=== PATIENT | female | born 1995 | race Caucasian/White ===

== ENCOUNTER 2016-10-22 17:24 | Emergency (ER) | payer SELFPAY ==
--- NOTE | 2016-10-22 19:27 | Emergency Department Report ---
Chief Complaint: Abdominal Pain Stated Complaint: ABD PAIN Time Seen by Provider: 10/22/16 19:22 - HPI History of Present Illness: [employer] service Patient reports that she has mid abdominal pain that is radiating into her back since Tuesday .She reports nausea and vomiting from Tuesday to Tuesday. Reports chills but did not take her temperature and she said she feels feverish. Denies any diarrhea. Pain is 8 out of 10. Patient says she has a at history of acid reflux and the pain is a burning pain pointing to her epigastric area. No previous surgeries in the past. Denies any blood in urine , burning with urination. - ROS Review of Systems: All systems are negative unless stated in HPI above. - Exam Vital Signs: Vital Signs 10/22/16 18:56 Temperature 98.3 F Pulse Rate 93 H Respiratory 18 Rate Blood Pressure 111/73 O2 Sat by Pulse 100 Oximetry Physical Exam: General: This is a 21-year-old female well-nourished well-developed in no acute distress. GI: Soft, palpate to mid to upper right quadrant. No guarding or rebound tenderness. Normal bowel sounds and no CVA tenderness. CV: S1, S2. Regular rate and rhythm. MSE screening note: Focused history and physical exam performed. Due to findings the following was ordered:see mdm ED Medical Decision Making - Medical Decision Making Medical decision making: Patient seen by provider in triage area. Appropriate protocol activated and patient to main ED to be seen by physician. ED Disposition for MSE Condition: Stable Instructions: Abdominal Pain (ED)
[2016-10-22 20:46] LABS: Basophils % (Auto) 0.5 % (0.0-1.8); Eosinophils % (Auto) 0.8 % (0.0-4.3); Hematocrit 37.1 % (30.3-42.9); Hemoglobin 12.5 gm/dl (10.1-14.3); Mean Corpuscular HGB Conc 34 % (30-34); Mean Corpuscular Hemoglobin 31 pg (28-32); Mean Corpuscular Volume 91 fl (79-97); Platelet Count 328 K/mm3 (140-440); Red Blood Count 4.09 M/mm3 (3.65-5.03); Red Cell Distribution Width 14.5 % (13.2-15.2); White Blood Count 10.7 K/mm3 (4.5-11.0)
[2016-10-22 20:53] LABS: Bilirubin,Urine NEG (Negative)
[2016-10-22 20:54] LABS: Blood,Urine SM (Negative); Ketones,Urine NEG (Negative); Leukocyte Esterase,Urine NEG (Negative); Mucus,Urine 1+ /HPF; Nitrite,Urine NEG (Negative); Protein,Urine <15 mg/dL mg/dL (Negative); Urobilinogen,Urine < 2.0 mg/dL (<2.0)
[2016-10-22 21:14] LABS: Alanine Aminotransferase 33 units/L (7-56); Albumin 4.3 g/dL (3.9-5); Albumin/Globulin Ratio 0.9 %; Alkaline Phosphatase 82 units/L (35-129); Amylase 50 units/L (27-131); Bilirubin,Total 0.6 mg/dL (0.1-1.2); Blood Urea Nitrogen 6 mg/dL (7-17); Calcium 9.4 mg/dL (8.4-10.2); Carbon Dioxide 25 mmol/L (22-30); Chloride 97.8 mmol/L (98-107); Glucose 105 mg/dL (65-100); Lipase 16 units/L (13-60); Potassium 4.8 mmol/L (3.6-5.0); Sodium 137 mmol/L (137-145); Total Protein 8.9 g/dL (6.3-8.2)
[2016-10-22 21:16] LABS: Anion Gap 19 mmol/L; Bilirubin,Direct < 0.2 mg/dL (0-0.2); Bilirubin,Indirect 0.4 mg/dL
[2016-10-23] MEDS ORDERED: TYLENOL PO ONE (07:27)
--- NOTE | 2016-10-23 07:52 | Emergency Department Report ---
ED General Adult HPI - General Chief complaint: Abdominal Pain Stated complaint: ABD PAIN Time Seen by Provider: 10/22/16 19:22 Source: patient, family Mode of arrival: Ambulatory Limitations: Language Barrier - History of Present Illness Initial comments: The patient complained of epigastric pain and right flank pain. Sometimes it radiates up towards the shoulder. These episodes are clearly postprandial. Over the last week specifically between Tuesday and Tuesday the patient had a few episodes of vomiting. She denied any urinary symptoms. She did not measure her temperature at home nor have any shaking chills. She has no prior history of gallstones. She states that she is not currently nauseated. She denies any shortness of breath or cough. -: month(s) Location: right (flank) Severity scale (0 -10): 6 Associated Symptoms: denies other symptoms (except), nausea/vomiting - Related Data Previous Rx's Medication Instructions Recorded Last Taken Type Cephalexin [Keflex] 500 mg PO QID #20 capsule 10/23/16 Unknown Rx HYDROcodone/APAP 5-325 [[place] 1 each PO Q6HR PRN #10 tablet 10/23/16 Unknown Rx 5/325] Ondansetron [Zofran Odt] 4 mg PO Q6H PRN #7 tab.rapdis 10/23/16 Unknown Rx Allergies Allergy/AdvReac Type Severity Reaction Status Date / Time No Known Allergies Allergy Verified 10/23/16 07:52 ED Review of Systems ROS: Stated complaint: ABD PAIN Other details as noted in HPI Constitutional: denies: chills, fever Eyes: denies: eye pain, eye discharge, vision change ENT: denies: ear pain, throat pain Respiratory: denies: cough, shortness of breath, wheezing Cardiovascular: denies: chest pain, palpitations Endocrine: no symptoms reported Gastrointestinal: abdominal pain. denies: nausea, diarrhea Genitourinary: denies: urgency, dysuria, discharge Musculoskeletal: back pain. denies: joint swelling, arthralgia Skin: denies: rash, lesions Neurological: denies: headache, weakness, paresthesias Psychiatric: denies: anxiety, depression Hematological/Lymphatic: denies: easy bleeding, easy bruising ED Past Medical Hx - Past Medical History Previous Medical History?: No - Social History Substance Use Type: None - Medications Home Medications: Home Medications Medication Instructions Recorded Confirmed Last Taken Type Cephalexin [Keflex] 500 mg PO QID #20 capsule 10/23/16 Unknown Rx HYDROcodone/APAP 5-325 [[place] 1 each PO Q6HR PRN #10 tablet 10/23/16 Unknown Rx 5/325] Ondansetron [Zofran Odt] 4 mg PO Q6H PRN #7 tab.rapdis 10/23/16 Unknown Rx ED Physical Exam - General Limitations: Language Barrier General appearance: alert, in no apparent distress - Head Head exam: Present: atraumatic, normocephalic - Eye Eye exam: Present: normal appearance - ENT ENT exam: Present: mucous membranes moist - Neck Neck exam: Present: normal inspection - Respiratory Respiratory exam: Present: normal lung sounds bilaterally. Absent: respiratory distress - Cardiovascular Cardiovascular Exam: Present: regular rate, normal rhythm. Absent: systolic murmur, diastolic murmur, rubs, gallop - GI/Abdominal GI/Abdominal exam: Present: soft, normal bowel sounds. Absent: distended, tenderness, guarding, rebound, rigid, organomegaly, mass - Extremities Exam Extremities exam: Present: normal inspection - Back Exam Back exam: Present: normal inspection. Absent: CVA tenderness (R), CVA tenderness (L), muscle spasm, paraspinal tenderness, vertebral tenderness - Neurological Exam Neurological exam: Present: alert, oriented X3, CN II-XII intact. Absent: motor sensory deficit - Psychiatric Psychiatric exam: Present: normal affect, normal mood - Skin Skin exam: Present: warm, dry, intact, normal color. Absent: rash ED Course Vital Signs 10/22/16 10/23/16 10/23/16 18:56 00:50 06:23 Temperature 98.3 F 98.1 F 98 F Pulse Rate 93 H 94 H 88 Respiratory 18 18 18 Rate Blood Pressure 111/73 Blood Pressure 127/86 122/85 [Left] O2 Sat by Pulse 100 99 100 Oximetry 10/23/16 10/23/16 10/23/16 07:31 07:56 08:00 Temperature Pulse Rate 87 Respiratory 18 18 Rate Blood Pressure 100/69 Blood Pressure [Left] O2 Sat by Pulse 99 99 Oximetry 10/23/16 10/23/16 10/23/16 08:11 08:15 09:00 Temperature 98.2 F Pulse Rate 79 82 Respiratory 15 15 Rate Blood Pressure 100/69 102/72 Blood Pressure [Left] O2 Sat by Pulse 98 99 Oximetry 10/23/16 10/23/16 09:41 11:11 Temperature Pulse Rate 96 H Respiratory 14 21 Rate Blood Pressure 107/68 Blood Pressure [Left] O2 Sat by Pulse 100 Oximetry - Reevaluation(s) Reevaluation #1: I spoke with Dr. Yang. He agrees with placing the patient on oral antibiotics and having her follow-up in his office. He suggested a HIDA as an out patient. I discovered that I cannot schedule it. 10/23/16 11:50 ED Medical Decision Making - Lab Data Result diagrams: 10/22/16 20:31 10/22/16 20:31 Laboratory Results - last 24 hr 10/22/16 10/22/16 10/22/16 20:31 20:31 20:31 WBC 10.7 RBC 4.09 Hgb 12.5 Hct 37.1 MCV 91 MCH 31 MCHC 34 RDW 14.5 Plt Count 328 Lymph % (Auto) 27.1 [place] % (Auto) 9.7 H Eos % (Auto) 0.8 Baso % (Auto) 0.5 Lymph # 2.9 [place] # 1.0 H Eos # 0.1 Baso # 0.1 Seg Neutrophils % 61.9 Seg Neutrophils # 6.6 Sodium 137 Potassium 4.8 Chloride 97.8 L Carbon Dioxide 25 Anion Gap 19 BUN 6 L Creatinine 0.5 L Estimated GFR > 60 BUN/Creatinine Ratio 12.00 Glucose 105 H Calcium 9.4 Total Bilirubin 0.6 Direct Bilirubin < 0.2 Indirect Bilirubin 0.4 AST 30 ALT 33 Alkaline Phosphatase 82 Total Protein 8.9 H Albumin 4.3 Albumin/Globulin Ratio 0.9 Amylase 50 Lipase 16 HCG, Qual Negative Urine Color Urine Turbidity Urine pH Ur Specific Vian Urine Protein Urine Glucose (UA) Urine Ketones Urine Blood Urine Nitrite Urine Bilirubin Urine Urobilinogen Ur Leukocyte Esterase Urine WBC (Auto) Urine RBC (Auto) U Epithel Cells (Auto) Urine Mucus 10/22/16 Unknown WBC RBC Hgb Hct MCV MCH MCHC RDW Plt Count Lymph % (Auto) [place] % (Auto) Eos % (Auto) Baso % (Auto) Lymph # [place] # Eos # Baso # Seg Neutrophils % Seg Neutrophils # Sodium Potassium Chloride Carbon Dioxide Anion Gap BUN Creatinine Estimated GFR BUN/Creatinine Ratio Glucose Calcium Total Bilirubin Direct Bilirubin Indirect Bilirubin AST ALT Alkaline Phosphatase Total Protein Albumin Albumin/Globulin Ratio Amylase Lipase HCG, Qual Urine Color Yellow Urine Turbidity Clear Urine pH 5.0 Ur Specific Vian 1.018 Urine Protein <15 mg/dl Urine Glucose (UA) Neg Urine Ketones Neg Urine Blood Sm Urine Nitrite Neg Urine Bilirubin Neg Urine Urobilinogen < 2.0 Ur Leukocyte Esterase Neg Urine WBC (Auto) 1.0 Urine RBC (Auto) 1.0 U Epithel Cells (Auto) 3.0 Urine Mucus 1+ - Radiology Data interpreted by me: Multiple gallstones including the larger one in the neck of the gallbladder slight wall thickening or pericholecystic fluid. CBD is normal. Critical care attestation.: If time is entered above; I have spent that time in minutes in the direct care of this critically ill patient, excluding procedure time. ED Disposition Clinical Impression: Biliary colic Disposition: DISCHARGED TO HOME OR SELFCARE Is pt being admited?: No Does the pt Need Aspirin: No Condition: Stable Instructions: Abdominal Pain (ED), Biliary Colic (ED) Additional Instructions: Return fever or any significant or prolonged abdominal pain or vomiting. You should follow up with the surgeon on the referral by Tuesday or Tuesday. Rx as directed. Prescriptions: Cephalexin [Keflex] 500 mg PO QID #20 capsule HYDROcodone/APAP 5-325 [[place] 5/325] 1 each PO Q6HR PRN #10 tablet PRN Reason: Pain Ondansetron [Zofran Odt] 4 mg PO Q6H PRN #7 tab.rapdis PRN Reason: Nausea Referrals: PRIMARY CARE, [Primary Care Provider] - 3-5 Days SEJAL YANG MD [Staff Physician] - 2-3 Days Time of Disposition: 11:54
--- NOTE | 2016-10-23 10:14 | Ultrasound Report ---
Sonogram right upper quadrant: History: Postprandial abdominal pain. Findings: Normal liver. No intrahepatic or extra hepatic dilatation or mass. Common bile duct diameter 6 mm. Gallbladder wall thickness 2.6 mm. Multiple small calculi in distended gallbladder. Large 1.9 cm calculus in the gall bladder neck. No pericholecystic fluid. Right kidney 11.2 x 3.9 x 6.4 cm. Cortical thickness 1.4 cm no mass. No hydronephrosis. Normal pancreas. Impression: Multiple small calculi in distended gallbladder. Large calculus in the neck of the gallbladder.
[2016-10-23] MEDS ORDERED: XYLOCAINE 1% MPF 5 mL INFILTRATI ONE (11:35)
[2016-10-23] MEDS ORDERED: ROCEPHIN IM ONE (11:35)
[2016-10-23] MEDS ORDERED: XYLOCAINE 1% 20 mL ONE (12:16)
[2016-10-23 12:36] VITALS: BP 102/71
== END 2016-10-23 11:57 | disposition home or self-care (01) ==
LOC: ED 17:24
DX: K80.70 Calculus of gallbladder and bile duct without cholecystitis without obstruction (principal)
CPT/HCPCS: 36415; 76705; 80048; 80074; 81001; 82150; 83690; 84703; 85025; 96372; 99284; J0696